=== PATIENT | female | born 1965 | race Caucasian/White ===

== ENCOUNTER 2019-05-01 11:36 | Outpatient (REF) | payer MEDICAID, SELFPAY ==
--- NOTE | 2019-05-01 10:30 | PAPFT_PTH ---
PATIENT: Katie Aguirre [facility] U[facility][id number] AGE/SX: 53/F ROOM: RE05/01/[address]: Reina Broussard : 1965 BED: DIS: 05/01/2019 SPEC #: [id number] RECD: 05/02/19 13:00 STATUS: VASYL RERobby #: [id number] ALEENA: 05/01/19 10:[address]: Reina Broussard DEPT: [facility] Cytology RECD BY: Jany Mitchell ENTERED: 05/02/19 13:00 SP TYPE: PAPFT OTHR DR: Kennedy May Tissues: 1 - CX/ENDOCX FOR PAP SMEARS Procedures: PAP THIN PREP/UVM Screening HPV DNA PROBE Comments: [id number]
== END 2019-05-01 11:56 ==
LOC: NCHCN 11:36
PROVIDERS: PCP Internal Medicine; Visit Provider Nurse Practitioner Family
DX: Z12.4 Encounter for screening for malignant neoplasm of cervix (principal); Z11.51 Encounter for screening for human papillomavirus (HPV); Z01.419 Encounter for gynecological examination (general) (routine) without abnormal findings; Z00.00 Encounter for general adult medical examination without abnormal findings
CPT/HCPCS: 88142; 87624

== ENCOUNTER 2019-05-17 10:05 | Outpatient (CLI) | payer MEDICAID, SELFPAY ==
--- NOTE | 2019-05-17 10:29 | DI.MAMMO_ITS ---
SYMPTOMS/DIAGNOSIS: SCREENING, Z12.31 MAMMOGRAM: Mammograms were interpreted according to the usual protocol including computer analysis with CAD system, tomosynthesis and C view imaging. The breast tissue is heterogeneously radiodense which lowers the sensitivity of the study. There is no dominant mass. There are no suspicious calcifications and there has been no significant interval change when compared with prior images. SUMMARY: No evidence of malignancy, Category I, yearly screening mammography is recommended. Breast C for breast density. SA ASSESSMENT OF FINDINGS: Negative. Category 1. Patient will receive a letter notifying them of these results. Bi-RADS category C. The breasts are heterogeneously dense, which may obscure small masses.
== END 2019-05-17 10:25 ==
PROVIDERS: PCP Internal Medicine; Visit Provider Nurse Practitioner Family
DX: Z12.31 Encounter for screening mammogram for malignant neoplasm of breast (principal)
CPT/HCPCS: 77063; 77067

== ENCOUNTER 2019-05-22 11:29 | Outpatient (REF) | payer MEDICAID, SELFPAY ==
--- NOTE | 2019-05-22 10:00 | SKI_PTH ---
PATIENT: Katie Aguirre LOC: [facility] U#:[id number] AGE/SX: 53/F ROOM: RE05/22/[address]: Reina Broussard : 1965 BED: DIS: 05/22/2019 SPEC #: [id number] RECD: 05/23/19 12:39 STATUS: VASYL REQ #: [id number] ALEENA: 05/22/19 10:[address]: Reina Broussard DEPT: Surgical Specimen RECD BY: Jany Mitchell ENTERED: 05/23/19 12:39 SP TYPE: JAMES OT DR: Kennedy May Tissues: 1 - SKIN BIOPSY(SHAVE/PUNCH) Procedures: SKIN LEVEL 4 Comments: [id number]
== END 2019-05-22 11:49 ==
LOC: NCHCN 11:29
PROVIDERS: PCP Internal Medicine; Visit Provider Nurse Practitioner Family
DX: L81.4 Other melanin hyperpigmentation (principal); L57.8 Other skin changes due to chronic exposure to nonionizing radiation
CPT/HCPCS: 88305

== ENCOUNTER → 2022-03-29 01:39 | Outpatient (CLI) | payer MEDICAID, SELFPAY ==
--- NOTE | 2022-03-29 15:50 | DI.MAMMO_ITS ---
Exam(s) MAMMO SCREENING EXAM: MAMMO SCREENING CLINICAL HISTORY: SCREENING, Z12.31 TECHNIQUE: Mammograms were interpreted according to the usual protocol including computer analysis w [employer] CAD system, tomosynthesis and C-view imaging. COMPARISON: 2013 and 2018 FINDINGS: The breasts are composed of heterogeneously dense fibroglandular densities, Breast Density category C . No suspicious masses or suspicious microcalcifications are seen. Incidental vascular calcifications. No skin thickening or abnormal axillary lymph nodes are seen. There has been no significant change from prior exams. IMPRESSION: BI-RADS Category 1, Negative mammogram. Yearly screening mammography is recommended. Breast Density Category C, heterogeneously Dense. The mammogram demonstrates the patient's breast tissue is dense. Dense breast tissue is very common a nd is not abnormal but dense breast tissue can make it harder to find cancer on a mammogram. Also, de nse breast tissue may increase breast cancer risk. This information about the result of the mammogram report was provided to the patient to raise their awareness. Use this report when you speak with the patient about their risks for breast cancer, which includes their family history. At that time, you may recommend additional screening tests (Ultrasound or MRI) as they might be useful based on their r isk. A negative radiographic report should not delay biopsy if a dominant or clinically suspicious mass is present. Up to ten percent of cancers are not identified on mammography. A negative report may reinforce clinical impression. Adenosis and dense breasts may obscure an underlying neoplasm. False positive reports average 6 to 10%.
== END ==
PROVIDERS: PCP Internal Medicine; Visit Provider Nurse Practitioner Family
DX: Z12.31 Encounter for screening mammogram for malignant neoplasm of breast (principal)
CPT/HCPCS: 77063; 77067

== ENCOUNTER 2023-04-11 08:24 | Day surgery (SDC) | payer MEDICAID, SELFPAY ==
--- NOTE | 2023-04-10 19:23 | W.PM.DSUDISC ---
Date of service: 04/11/23 Time of Service: 10:42 Discharge Plan Disposition Patient Disposition: Home Condition: Good Discharge Details Reason For Visit: Screening colonscopy Attending Provider: Braden Baker Primary Care Provider: Reina Broussard Home Meds and New Rx's Prescriptions: Continued melatonin 3 mg capsule 3 mg PO HS PRN Patient Comments: 1.5mg last night multivitamin Tablet 1 tab PO DAILY zinc 25 mg Tablet PO PRN PRN cholecalciferol (vitamin D3) [Ddrops] 25 mcg/drop ( 1,000 unit/drop) Drops 25 mcg PO PRN PRN Discontinued bisacodyl [Dulcolax (bisacodyl)] 5 mg tablet,delayed release (DR/EC) 5 mg PO ONCE Qty: 4 0RF Rx Instructions: Take per colonoscopy instructions provided by ordering providers office polyethylene glycol 3350 17 gram/dose powder 17 g PO ONCE Qty: 238 0RF Rx Instructions: Take per colonoscopy instructions provided by ordering providers office Discharge Instructions Instructions: Colorectal Polyps (GEN) Additional Instructions: Katie, we were able to complete your colonoscopy today without much difficulty. I did find 2 polyps. One was within your rectum. The other was about 30 cm from your anus. Both of these polyps were extremely small. I removed them both completely. Neither had any worrisome features to the naked eye. This will be sent off to the pathologist, and when I have the final report on the nature of these polyps I will be in touch with any changes with regards to my recommendations. 1. If tolerated, consume a soft, low fiber diet for 1-2 days. 2. Do not drive, drink alcohol, operate machinery, make critical decisions, or do activities that require coordination or balance for 24 hours. 3. Because air was put into your colon during the procedure, expelling air from your rectum (passing gas or farting) is normal. 4. You may not have a bowel movement for 1-3 days because of the colonoscopy prep. This is normal. 5. Go directly to the emergency room if you notice any of the following: Develop chills (warm to touch), or if you have a thermometer and your temperature is above 101 Difficulty breathing or difficultly swallowing Persistent vomiting Severe abdominal pain, other than gas cramps Severe chest pain Black, tarry stools Any bleeding ? exceeding one tablespoon 6. Call your physician if the site where your intravenous was started becomes red, swollen, painful, and warm to touch. 7. Your physician has reviewed your pre-procedure medications. Please continue to take those medications as previously ordered. You will be given specific information/education regarding any changes to your medications before leaving. Activity:: Activity as Tolerated Diet:: As Tolerated Discharge Orders Discharge Orders: Discharge Order (Routine); Ordered 04/10/23 Ordered By: Braden Baker DS: Diagnosis Discharge Diagnosis (1) Screening for colon cancer: Status: Acute Asessment and Plan: Follow-up on polypectomy results
--- NOTE | 2023-04-10 19:25 | COLE_ITS ---
Date of service: 04/11/23 Time of Service: 10:43 Colonoscopy Report Date of procedure: 04/11/23 Pre-op diagnosis general: Screening colonoscopy Post-op diagnosis procedure note: other (Colorectal polyps) Procedure: Colonoscopy with polypectomy Surgeon: Braden Baker Anesthesia Type: General:No Airway Estimated blood loss (mL): 10 Pathology: other (Rectal polyp, polyp at 30 cm) Complications: None Disposition: same day Indications: Katie is a 57 year old woman who has first degree relative with a history of colon cancer. She is here for her next screening colonoscopy Prep: Miralax/Dulcolax Procedure Start Time: : Procedure End Time: Retraction Time: 11 Findings: 0.25 cm rectal polyp, 0.25 cm polyp at 30 cm Procedure Description: After the induction of monitored anesthetic care, and with the patient in left l ateral decubitus position, I began by performing an external anorectal exam.? Perineum and skin were normal, as was the anal verge.? There are some perianal skin tags.? Next, I performed a digital rectal exam.? I did not appreciate any abnormal findings.? Next, I advanced a colonoscope into the rectal vault.? I performed retroflexion.? This was normal.? Within the rectal vault was a 0.25 cm sessile polyp. I removed this with cold forcep polypectomy. There was minimal bleeding. Using insufflation, I then advanced the colonoscope beyond the rectal folds and into the sigmoid colon before advancing towards the cecum.?Around 30 cm from the anal verge I identified a 0.25 cm polyp. ?It appeared sessile in character. ?I was able to remove this with a cold forceps. ?I examined the site, and there was minimal bleeding. The quality of the prep was excellent.? The scope was noted to be in the cecum by identification of the ileocecal valve and appendiceal orifice.? I then began withdrawing the colonoscope using repeated irrigation as necessary for full evaluation of the colonic mucosa. ?Once the scope was withdrawn to the level of the rectum, great care was taken to examine portions of the rectal folds.? Finally, the scope was withdrawn and the patient was brought to the same-day surgery recovery unit as the anesthetic wore off. ?The findings and instructions were shared with the patient prior to discharge.
[2023-04-11] VITALS (7 sets, daily range): BP systolic 104–170; BP diastolic 61–88; PULSE 66–109; RESP 14–16; TEMP 36.2–36.5; O2SAT 98–100; BMI 20.2
[2023-04-11] MEDS: Lactated Ringers 1,000 ML 80 ML IV (09:15)
--- NOTE | 2023-04-11 09:40 | W.ANESPRE ---
General Info Date of Service Date Performed: 04/11/23 Height: 5 ft 4 in Weight: 53.4 kg Body Mass Index (BMI): 20.2 Surgical Procedure: Operation Date: 04/11/23 09:50 Proposed Procedure Side Surgeon p Colonoscopy Braden Baker MD Actual Procedure Side Surgeon p Colonoscopy Not Applicable Braden Baker MD Pre-Op Diagnosis Post-Op Diagnosis Screening colonscopy Meds Allergies and Home Medications Allergies Allergy/AdvReac Type Severity Reaction Status Date / Time No Known Allergies Allergy Unverified 04/11/23 08:52 Home Medication Medication Instructions Recorded melatonin 3 mg capsule 3 mg PO HS PRN 03/31/23 cholecalciferol (vitamin D3) 25 25 mcg PO PRN PRN 04/08/23 mcg/drop (1,000 unit/drop) oral drops (Ddrops) multivitamin 1 tab PO DAILY 04/08/23 zinc 25 mg tablet mg PO PRN PRN 04/08/23 Current Visit Medications: Current Medications Generic Name Dose Route Start Last Admin Trade Name Freq PRN Reason Stop Dose Admin Hyoscyamine Sulfate 0.125 mg 04/10/23 19:27 Hyoscyamine 0.125 Mg Sl/Oral/Chew SL 05/10/23 19:26 DIRECTED PRN Ringer's Solution 1,000 mls @ 80 mls/hr 04/11/23 06:00 04/11/23 09:15 IV 04/11/23 23:59 80 mls/hr INFUSION DENISSE Administration IV Miscellaneous Supplies 1 each 04/11/23 06:00 Iv Access IV 04/11/23 23:59 DIRECTED DENISSE Ondansetron HCl 4 mg 04/10/23 19:27 Ondansetron 4 Mg/2 Ml Vial IVP 05/10/23 19:26 Q4H PRN PRN Nausea / Vomiting Sodium Chloride 0 ml 04/11/23 06:00 Normal Saline Flush 10 Ml Syr IV 04/11/23 23:59 PRN PRN Sodium Chloride 0 ml 04/11/23 06:00 Normal Saline 10 Ml Vial IJ 04/11/23 23:59 DIRECTED PRN Sterile Water 0 ml 04/11/23 06:00 Water,Injection,Sterile 10 Ml Vial IJ 04/11/23 23:59 DIRECTED PRN PFSH Active Problems Active Problems: Problem Status Onset Code Screening for colon cancer Z12.11 Family history of colon cancer Z80.0 Medical History Medical History Anxiety Motion sickness caused anxiety Other calcification of muscle, right shoulder Uterine fibroid Medical History Comments:: mother has vomitting with anesthesia Surgical History Surgical History H/O oral surgery History of colonoscopy Tobacco Smoking/Tobacco Use Status: Never Alcohol Alcohol Intake: current Alcohol intake frequency: a few times a month Alcohol type: beer, wine and hard liquor Substance Use Substance use: Never Details: alcohol: 04/07/2023 Vital Signs and Lab Results Vital Signs Most Recent Vital Signs in EMR: Most Recent Vital Signs Temp Pulse Resp BP Pulse Ox 36.4 C L 109 H 16 170/88 H 99 04/11/23 08:57 04/11/23 08:57 04/11/23 08:57 04/11/23 08:57 04/11/23 08:57 Lab Results Blood Type / Crossmatch: No Data to Display Complete Blood Count: No Data to Display Complete Metabolic Panel: No Data to Display Liver Function Panel: No Data to Display Coagulation Panel: No Data to Display Cardiac Panel: No Data to Display Arterial Blood Gas: No Data to Display Venous Blood Gas: No Data to Display Pancreas Panel: No Data to Display Thyroid Panel: No Data to Display Infectious Disease: No Data to Display Blood Cultures: No Data to Display Toxicology Panel: No Data to Display Anesthesia Assessment and Plan Anesthesia History Personal History: No History of Anesthesia Complications Family History: Other Exercise Tolerance Exercise Tolerance: Metabolic Equivalents>4 Cardiac & Pulmonary Exam Cardiac Exam: Normal S1/S2 Heart Sounds Pulmonary Exam: Clear Bilateral Breath Sounds Implantable Cardiac Device Does patient have a Pacemaker or an ICD?: No Airway Exam Known Difficult Airway: No Mallampati Class: 2 Mouth Opening: Normal (> 3cm) Thyromental Distance: Greater than 3 cm Facial Hair: Full [place] Neck Range of Motion: Full ROM Neck Circumference: Normal Teeth Condition: Normal Dentition ASA Classification ASA Score: ASA 2 Emergency Case?: No NPO Status NPO Status: NPO Clears >2 hours, Solids >8 hours Anesthesia Plan Resuscitation Status: Full Code Anesthesia Technique: General Anesthesia Airway Planned: Natural Airway Monitors Used: Standard Monitors
--- NOTE | 2023-04-11 10:13 | BOWEL_PTH ---
PATIENT: Katie Aguirre LOC: [facility] U#:[id number] AGE/SX: 57/F ROOM: RE04/11/[address]: Braden Baker MD : 1965 BED: DIS: 04/11/2023 SPEC #: [id number] RECD: 04/11/23 12:53 STATUS: VASYL RE #: [id number] ALEENA: 04/11/23 10:[address]: Braden Baker DEPT: Surgical Specimen RECD BY: Jany Mitchell ENTERED: 04/11/23 12:54 SP TYPE: Bowel OTHR DR: Reina Broussard Tissues: 1 - BIOPSY BOWEL 2 - BIOPSY BOWEL Procedures: GROSS AND MICRO LEVEL 4 Comments: [id number]
--- NOTE | 2023-04-11 10:55 | W.ANESPOSTOP ---
Postoperative Evaluation Date, Time and Location Date Performed: 04/11/23 Time Performed: 10:56 Patient Location: PACU Vital Signs Most Recent Imported Vital Signs: Most Recent Vital Signs Temp Pulse Resp BP Pulse Ox 36.3 C L 66 14 108/63 100 04/11/23 10:40 04/11/23 10:51 04/11/23 10:51 04/11/23 10:51 04/11/23 10:51 Pain Score Most Recent Pain Score: Most Recent Pain Score Pain Level 0 04/11/23 08:57 Assessment Mental Status: Arousable with meaningful communication Airway and Respiratory Function: Patent airway with normal (patient baseline) respiratory exam Cardiovascular Function: Hemodynamically Stable Hydration Status: Adequately Hydrated Nausea & Vomiting: No Nausea or Vomiting Pain: Pt. Denies Any Pain Peripheral Nerve Block: Patient did not receive a nerve block
== END 2023-04-11 11:45 | disposition home or self-care (01) ==
PROVIDERS: PCP Nurse Practitioner Family; Visit Provider Surgery
PROC: 0DJD8ZZ Inspection of Lower Intestinal Tract, Via Natural or Artificial Opening Endoscopic (ICD-10-PCS; CPT 45378; principal; 2023-04-11 09:45)
DX: Z12.11 Encounter for screening for malignant neoplasm of colon (principal); K63.5 Polyp of colon; K62.1 Rectal polyp; Z80.0 Family history of malignant neoplasm of digestive organs
CPT/HCPCS: 45380; 88305; J2001

== ENCOUNTER 2025-01-10 17:21 | Outpatient (REF) | payer MEDICAID, SELFPAY ==
[2025-01-10 22:01] LABS: Anion Gap 8.7 mmol/L (3-11); BUN 14 mg/dL (7-18); CO2 27.3 mmol/L (21.0-32.0); CREATININE 0.6 mg/dL (0.55-1.02); Calcium 9.5 mg/dL (8.5-10.1); Calculated LDL 120 mg/dL (<100); Chloride 106 mmol/L (98-107); Cholesterol 225 mg/dL (<200); Estimated GFR 102.69 (mL/min/1.73m2); Glucose 117 mg/dL (74-106); HDL Cholesterol 80 mg/dL (>or=50); Potassium 3.9 mmol/L (3.5-5.1); Sodium 142 mmol/L (136-145); Triglyceride 129 mg/dL (<150)
[2025-01-13 09:30] LABS: HIV-1/2 Ag & Ab Screen Negative (Negative)
[2025-01-14 11:32] LABS: Hepatitis C Ab w Rflx HCV PCR Negative (Negative)
== END 2025-01-10 17:22 | disposition home or self-care (01) ==
LOC: NCHCN 17:21
PROVIDERS: PCP Nurse Practitioner Family; Visit Provider Family Medicine
DX: Z13.220 Encounter for screening for lipoid disorders (principal); Z11.4 Encounter for screening for human immunodeficiency virus [HIV]; Z11.59 Encounter for screening for other viral diseases
CPT/HCPCS: 80048; 80061; 86803; 87389

== ENCOUNTER 2025-01-11 10:19 | Outpatient (REF) | payer MEDICAID, SELFPAY ==
--- NOTE | 2025-01-10 16:20 | PAPFT_PTH ---
PATIENT: Katie Aguirre LOC: [facility] U#:[id number] AGE/SX: 59/F ROOM: RE01/11/[address]: Ana Han : 1965 BED: DIS: 01/11/2025 SPEC #: [id number] RECD: 01/11/25 13:04 STATUS: VASYL RERobby #: [id number] ALEENA: 01/10/25 16:[address]: Ana Han DEPT: [facility] Cytology RECD BY: Jany Mitchell ENTERED: 01/11/25 13:05 SP TYPE: PAPFT OTHR DR: Reina Broussard Tissues: 1 - CX/ENDOCX FOR PAP SMEARS Procedures: PAP THIN PREP/UVM Screening HPV DNA PROBE Comments: [id number] (HPV 16 & 18/45)
== END 2025-01-11 10:20 | disposition home or self-care (01) ==
LOC: NCHCN 10:19
PROVIDERS: PCP Nurse Practitioner Family; Visit Provider Family Medicine
DX: Z11.51 Encounter for screening for human papillomavirus (HPV) (principal); Z01.419 Encounter for gynecological examination (general) (routine) without abnormal findings
CPT/HCPCS: 88142; 87624

== ENCOUNTER 2025-01-14 01:02 | Outpatient (CLI) | payer MEDICAID, SELFPAY ==
--- NOTE | 2025-01-14 | DI.MAMMO_ITS ---
Exam(s) MAMMO SCREENING EXAM: MAMMO SCREENING CLINICAL HISTORY: SCREENING, Z12.31 TECHNIQUE: Bilateral full field digital CC and MLO mammographic images were obtained with 3D tomosyn thesis and utilizing computer aided detection (CAD). COMPARISON: Available for comparison. FINDINGS: Masses/Architectural Distortion: None seen. Microcalcifications: No suspicious pleomorphic-type are seen. Skin Thickening/Nipple Retraction: None. IMPRESSION: 1. No significant interval change with no specific features of malignancy noted. 2. Unless there is more urgent need, screening mammography is recommended, as per [employer] guidelines. BI-RADS Category 1 - Negative Breast Density - Category C - Heterogeneously dense Breast density category C or D implies that the patient has dense breast tissue. Dense breast tissue is very common and is not abnormal but dense breast tissue can make it harder to find cancer on a ma mmogram. Also, dense breast tissue may increase their breast cancer risk. This information about the result of the mammogram report was provided to the patient to raise their awareness. Use this report when you speak with the patient about their risks for breast cancer, which includes their family hist ory. At that time, you may recommend for more screening tests (Ultrasound or MRI) as they might be us eful based on their risk. A negative radiographic report should not delay biopsy if a dominant or clinically suspicious mass is present. Up to ten percent of cancers are not identified on mammography. A negative report may reinforce clinical impression. Adenosis and dense breasts may obscure an underlying neoplasm. False positive reports average 6 to 10%. Patient will receive a letter notifying them of these results.
== END 2025-01-14 01:22 ==
LOC: DI 01:02
PROVIDERS: PCP Nurse Practitioner Family; Visit Provider Family Medicine
DX: Z12.31 Encounter for screening mammogram for malignant neoplasm of breast (principal); R92.333 Mammographic heterogeneous density, bilateral breasts
CPT/HCPCS: 77063; 77067